=== PATIENT | female | born 1990 | race Caucasian/White ===

== ENCOUNTER 2016-08-24 10:42 | Outpatient (CLI) | payer OTHER ==
--- NOTE | 2016-08-24 12:56 | DIAGNOSTIC IMAGING REPORT ---
PROCEDURE: US COMPLETE PELVIC W/TRANSVAG INDICATION: ABN BLEEDING,PAIN, initial encounter TECHNIQUE: Transabdominal and endovaginal bae scale and color Doppler sonographic images of the female pelvis were obtained. COMPARISON: Pelvic ultrasound 03/16/2016 FINDINGS: TRANSABDOMINAL SCANS: Retroverted uterus. Normal kidneys. TRANSVAGINAL SCANS: Retroverted uterus measures 6.2 x 4 x 2.8 cm. Myometrium is unremarkable. Endometrium measures 3 mm with avascular thickening in the endocervical canal which may represent blood products. . Left ovary measures 3.5 x 2.6 x 2.1 cm and right ovary 3.2 x 2.2 x 3.4 cm. Bilateral follicles. Normal vascular flow to both ovaries. No free fluid or adnexal mass. IMPRESSION: 1. Avascular thickening of the endocervical canal which may represent blood products 2. Otherwise negative pelvic ultrasound
== END 2016-08-24 23:00 ==
LOC: US SRH 10:42
DX: R10.2 Pelvic and perineal pain (principal)